=== PATIENT | female | born 1995 | race Caucasian/White ===

== ENCOUNTER 2016-05-31 19:53 | Emergency (ER) | payer SELFPAY ==
[2016-05-31 20:00] VITALS: BP 148/83; PULSE 84; TEMP 97.8; BMI 33.5
--- NOTE | 2016-05-31 20:51 | PDOC ---
History of Present Illness - General Chief Complaint: Back Pain Stated Complaint: BACK PAIN Time Seen by Provider: 05/31/16 20:26 History Source: Patient Exam Limitations: No Limitations - History of Present Illness Occurred: reports: other (x3d ago) Pain Location: reports: back (lower) Method of Injury: Yes: other (moving furniture) Past History - Travel Traveled outside of the country in the last 30 days: No Close contact w/someone who was outside of country & ill: No - Past Medical History Allergies/Adverse Reactions: Allergies Allergy/AdvReac Type Severity Reaction Status Date / Time No Known Allergies Allergy Verified 05/31/16 20:36 Home Medications: Ambulatory Orders Acetaminophen [Tylenol .Extra-Strength -] 1,000 mg PO DAILY 11/06/14 Ibuprofen 600 mg PO QID PRN #30 tablet 11/06/14 Other medical history: DENIES - Psycho/Social/Smoking Cessation Hx Anxiety: No Suicidal Ideation: No Smoking History: Never smoked Have you smoked in the past 12 months: No Information on smoking cessation initiated: No Hx Alcohol Use: No Drug/Substance Use Hx: No Substance Use Type: None Review of Systems - Review of Systems Able to Perform ROS?: Yes Comments:: 05/31/16 20:56 CONSTITUTIONAL: Absent: fever, chills, diaphoresis, generalized weakness, malaise, loss of appetite HEENT: Absent: rhinorrhea, nasal congestion, throat pain, throat swelling, difficulty swallowing, mouth swelling, ear pain, eye pain, visual Changes CARDIOVASCULAR: Absent: chest pain, loss of consciousness, palpitations, irregular heart rate, peripheral edema RESPIRATORY: Absent: cough, shortness of breath, dyspnea with exertion, orthopnea, wheezing, stridor, hemoptysis GASTROINTESTINAL: Absent: abdominal pain, abdominal distension, nausea, vomiting, diarrhea, constipation, melena, hematochezia GENITOURINARY: Absent: dysuria, frequency, urgency, hesitancy, hematuria, flank pain, genital pain MUSCULOSKELETAL: +lower back pain Absent: myalgia, arthralgia, joint swelling SKIN: Absent: rash, itching, pallor HEMATOLOGIC/IMMUNOLOGIC: Absent: easy bleeding, easy bruising, lymphadenopathy, frequent infections ENDOCRINE: Absent: unexplained weight gain, unexplained weight loss, heat intolerance, cold intolerance NEUROLOGIC: Absent: headache, focal weakness or paresthesias, dizziness, unsteady gait, seizure, mental status changes, bladder or bowel incontinence PSYCHIATRIC: Absent: anxiety, depression, suicidal or homicidal ideation, hallucinations. Is the patient limited Dutch proficient: No *Physical Exam - Vital Signs Last Vital Signs Temp Pulse Resp BP Pulse Ox 97.8 F 84 20 148/83 100 05/31/16 19:57 05/31/16 19:57 05/31/16 19:57 05/31/16 19:57 05/31/16 19:57 - Physical Exam Comments: 05/31/16 20:56 GENERAL: Well developed, well nourished. Awake and alert. No acute distress. HEENT: Normocephalic, atraumatic. PERRLA, EOMI. No conjunctival pallor. Sclera are non- icteric. Moist mucous membranes. Oropharynx is clear. NECK: Supple. Full ROM. No JVD. Carotid pulses 2+ and symmetric, without bruits. No thyromegaly. No lymphadenopathy. CARDIOVASCULAR: Regular rate and rhythm. No murmurs, rubs, or gallops. Distal pulses are 2+ and symmetric. PULMONARY: No evidence of respiratory distress. Lungs clear to auscultation bilaterally. No wheezing, rales or rhonchi. ABDOMINAL: Soft. Non-tender. Non-distended. No rebound or guarding. No organomegaly. Normoactive bowel sounds. MUSCULOSKELETAL Normal range of motion at all joints. No bony deformities or tenderness. No CVA tenderness. EXTREMITIES: No cyanosis. No clubbing. No edema. No calf tenderness. SKIN: Warm and dry. Normal capillary refill. No rashes. No jaundice. NEUROLOGICAL: Alert, awake, appropriate. Cranial nerves 2-12 intact. No deficits to light touch and temperature in face, upper extremities and lower extremities. No motor deficits in the in face, upper extremities and lower extremities. Normoreflexic in the upper and lower extremities. Normal speech. Toes are down- going bilaterally. Gait is normal without ataxia. PSYCHIATRIC: Cooperative. Good eye contact. Appropriate mood and affect. tandem/heel/toe walk intact deep knee bend without diff Neg SLR Progress Note - Progress Note Progress Note: 20-year-old female without any past medical history presents to the emergency department complaining of lower back pain after moving heavy furniture in her bedroom 3 days ago. Patient says while moving her furniture, she did not then at the knees. Patient denies any extremity numbness or tingling sensation, bladder or bowel dysfunction, abdominal pains, chest pain, shortness of breath. Pain is described as 4/10 dull nonradiating intermittent discomfort. The pain is alleviated with Tylenol and and exacerbated on movement. *DC/Admit/Observation/Transfer Diagnosis at time of Disposition: Low back strain Qualifiers: Encounter type: initial encounter Qualified Code(s): S39.012A - Strain of muscle, fascia and tendon of lower back, initial encounter - Discharge Dispostion Disposition: HOME Condition at time of disposition: Improved - Referrals Referrals: Jay Laguna MD [Staff Physician] - - Patient Instructions Printed Discharge Instructions: DI for Back Strain or Sprain Additional Instructions: Rest Toradol as needed for pain Tylenol for mild pain Follow up with your physician and the neurologist listed on your discharge Return to the ER for severe/persistent/worsening symptoms, bladder/bowel dysfunction
[2016-05-31] MEDS ORDERED: KETOROLAC TROMETHAMINE 60 MG/2 ML VIAL IM ONE (21:56)
[2016-05-31] MEDS ORDERED: KETOROLAC TROMETHAMINE 60 MG/2 ML VIAL ONE (22:09)
[2016-05-31] MEDS ORDERED: CYCLOBENZAPRINE HCL 10 MG TABLET (FP) PO ONE (22:53)
[2016-05-31] MEDS ORDERED: CYCLOBENZAPRINE HCL 10 MG TABLET (FP) ONE (23:15)
== END 2016-05-31 23:33 | disposition home or self-care (01) ==
LOC: JER 19:53 → JERFT 19:53 → JER 23:33
PROC: 3E0233Z Introduction of Anti-inflammatory into Muscle, Percutaneous Approach (ICD-10-PCS; principal; 2016-05-31)
DX: S39.012A Strain of muscle, fascia and tendon of lower back, initial encounter (principal); X50.0XXA Overexertion from strenuous movement or load, initial encounter; Y93.E9 Activity, other interior property and clothing maintenance; Y92.032 Bedroom in apartment as the place of occurrence of the external cause
CPT/HCPCS: 84703; 99283-25

== ENCOUNTER 2019-01-03 11:51 | Emergency (ER) | payer OTHER ==
[2019-01-03 11:57] VITALS: BP 125/63; PULSE 90; TEMP 98.9; BMI 30.5
--- NOTE | 2019-01-03 12:09 | PDOC ---
History of Present Illness - General Chief Complaint: Cold Symptoms Stated Complaint: SORE THROAT Time Seen by Provider: 01/03/19 12:00 History Source: Patient Exam Limitations: No Limitations (sorethroat and cough X 4 days) - History of Present Illness Associated Symptoms: reports: cough, nasal congestion, sore throat. denies: earache, facial pain, fever/chills, headache, lightheadedness, muscle aches, nasal drainage Past History - Travel Traveled outside of the country in the last 30 days: No Close contact w/someone who was outside of country & ill: No - Past Medical History Allergies/Adverse Reactions: Allergies Allergy/AdvReac Type Severity Reaction Status Date / Time No Known Allergies Allergy Verified 01/03/19 11:53 Home Medications: Ambulatory Orders Acetaminophen [Tylenol .Extra-Strength -] 1,000 mg PO DAILY 11/06/14 Ibuprofen 600 mg PO QID PRN #30 tablet 11/06/14 Ketorolac Tromethamine [Toradol] 10 mg PO TID #12 tablet 05/31/16 Sulfamethoxazole/Trimethoprim [Bactrim Ds -] 1 tab PO BID #14 tablet 09/19/17 levoFLOXacin [Levaquin -] 250 mg PO DAILY #3 tablet 09/21/17 Benzonatate [Tessalon Pearls -] 100 mg PO TID #21 capsule 01/03/19 COPD: No - Psycho Social/Smoking Cessation Hx Smoking History: Never smoked Have you smoked in the past 12 months: No Hx Alcohol Use: No Drug/Substance Use Hx: No Substance Use Type: None Review of Systems - Review of Systems Constitutional: No: Chills, Fever HEENTM: Yes: Nose Congestion, Throat Pain. No: Hearing Loss, Throat Swelling, Mouth Pain Respiratory: Yes: Cough, Productive cough. No: Shortness of Breath, SOB at Rest , Stridor Cardiac (ROS): Yes: Chest Pain (during coughing). No: Chest Tightness Neurological: No: Headache, Numbness, Paresthesia, Dizziness *Physical Exam - Vital Signs Last Vital Signs Temp Pulse Resp BP Pulse Ox 98.9 F 90 20 125/63 96 01/03/19 11:54 01/03/19 11:54 01/03/19 11:54 01/03/19 11:54 01/03/19 11:54 - Physical Exam General Appearance: Yes: Nourished HEENT: positive: EOMI, TITUS, Normal Voice, TMs Normal, Pharyngeal Erythema, Nasal Congestion. negative: Tonsillar Exudate, Tonsillar Erythema, Rhinorrhea, Sinus Tenderness Neck: positive: Supple Respiratory/Chest: positive: Lungs Clear, Normal Breath Sounds Cardiovascular: positive: Regular Rhythm, Regular Rate, S1, S2 Extremity: positive: Normal Capillary Refill Neurologic: positive: microbiology laboratory manager II-XII NML intact, Fully Oriented, Alert, Normal Mood/ Affect, Normal Response, Motor Strength /5 Medical Decision Making - Medical Decision Making 01/03/19 12:09 23 years old female with nasal congestion and sore throat after taking a flu vaccination 4 days ago. Patient denies any fever chills she is a non-smoker EKG NSR @ 83bpm,no acute ST-T changes noted exam consistent with frontal sinus tenderness Discharge - Discharge Information Problems reviewed: Yes Clinical Impression/Diagnosis: URI, acute Condition: Stable Disposition: HOME - Admission No - Additional Discharge Information Prescriptions: Benzonatate [Tessalon Pearls -] 100 mg PO TID #21 capsule Prescription Drug Monitoring Program (I-STOP) results: I-STOP not reviewed - Follow up/Referral Referrals: Denilson Gaming [Non Staff, Medical] - - Patient Discharge Instructions Patient Printed Discharge Instructions: DI for Common Cold Additional Instructions: Your rapid strep was negative a culture was sent out if it becomes positive you will be contacted for antibiotics You have a viral upper respiratory infection Please take medication as prescribed Increase hydration and rest Follow-up with your primary care doctor Return to the emergency room for worsening symptoms occurs - Post Discharge Activity
--- NOTE | 2019-01-04 10:06 | EKG ---
Test Reason : Blood Pressure : / mmHG Vent. Rate : 083 BPM Atrial Rate : 083 BPM P-R Int : 198 ms QRS Dur : 088 ms QT Int : 372 ms P-R-T Axes : 053 036 049 degrees QTc Int : 437 ms NORMAL SINUS RHYTHM WITH SINUS ARRHYTHMIA NORMAL ECG NO PREVIOUS ECGS AVAILABLE Confirmed by PATRICK REID MD ([id number]) on 01/04/2019 10:06:38 AM Referred By: Confirmed By:PATRICK REID MD
== END 2019-01-03 13:32 | disposition home or self-care (01) ==
LOC: JERFT 11:51
DX: J06.9 Acute upper respiratory infection, unspecified (principal)
CPT/HCPCS: 87070; 87880; 93005; 93010; 99282-25

== ENCOUNTER 2020-04-10 19:52 | Emergency (ER) | payer OTHER ==
[2020-04-10 20:43] VITALS: BP 129/69; PULSE 93; TEMP 98.2; BMI 31.9
[2020-04-10 23:30] LABS: EPI CELLS 2 /uL (0-25.1); HYALINE CASTS 3 /uL (0-3.1); URINE APPEARANCE CLEAR; URINE BACTERIA 831 /uL (0-1359); URINE BILIRUBIN NEGATIVE (NEGATIVE); URINE COLOR YELLOW; URINE GLUCOSE (UA) NEGATIVE (NEGATIVE); URINE KETONE NEGATIVE (NEGATIVE); URINE LEUK ESTERASE 2+ (NEGATIVE); URINE NITRITE NEGATIVE (NEGATIVE); URINE PROTEIN 1+ (NEGATIVE); URINE RBC 28 /uL (0-23.9); URINE UROBILINOGEN 0.2 mg/dL (0.2-1.0); URINE WBC 245 /uL (0-25.8)
== END 2020-04-10 23:55 | disposition home or self-care (01) ==
LOC: JER 19:52
DX: O23.41 Unspecified infection of urinary tract in pregnancy, first trimester (principal)
CPT/HCPCS: 36415; 81003; 87086; 87186; 87491; 87591; 99283-25